=== PATIENT | male | born 1955 | race African-American/Black ===

== ENCOUNTER 2021-06-03 10:07 | Inpatient (IN) ==
[2021-06-03 11:46] LABS: Basophils % 0.2 % (0.0-0.8); Eosinophils # 0.2 10*3/uL (0.0-0.87); Eosinophils % 1.4 % (0.00-10.9); Hematocrit 44.4 VOL% (42.0-52.0); Hemoglobin 14.4 GM/DL (14.0-18.0); Immature Granulocytes % 0.5 %; Immature Granulocytes Absolute 0.05 #; Lymphocytes # 1.5 10*3/uL (1.4-4.0); Lymphocytes % 13.5 % (21.2-54.2); Mean Corpuscular HGB Conc 32.4 GM/DL (32-36); Mean Corpuscular Volume 94.1 FL (87-102); Mean Platelet Volume 9.5 FL (9.6-12.0); Monocytes % 11.9 % (1.7-12.7); Neutrophils % 72.5 % (38.7-73.9); Platelet Count 265 T/CUMM (130-400); Red Blood Count 4.72 MC/CUMM (3.8-5.5); Red Cell Distribution Width 14.4 % (9.3-17.3); White Blood Count 10.8 T/CUMM (4-12)
[2021-06-03 11:57] LABS: INR 3.7; PT Patient Result 38.2 SECS (10.5-12.0)
[2021-06-03 12:53] LABS: Albumin 3.2 G/DL (3.4-5.0); Bilirubin,Total 0.5 MG/DL (0.20-1.00); Calcium 9.3 MG/DL (8.5-10.1); Osmolality,Calculated 291.5 MOS/KG (273-304); Potassium 4.9 MMOL/L (3.5-5.1); Total Protein 7.2 G/DL (6.4-8.2)
[2021-06-03] MEDS ORDERED: ONDANSETRON 4 MG/2 ML VIAL IV PRN (13:04)
[2021-06-03] MEDS ORDERED: BISACODYL 5 MG TABLET PO PRN (13:04)
[2021-06-03] MEDS ORDERED: DEXTROSE 50% 25 GM/50 ML VIAL IV PRN (13:11)
[2021-06-03] MEDS ORDERED: GLUCAGON 1 MG VIAL IM PRN (13:11)
[2021-06-03] MEDS ORDERED: SODIUM CHLORIDE 0.9% 1,000 ML IV PRN (13:27)
[2021-06-03] MEDS ORDERED: PHYTONADIONE 5 MG/5 ML ORAL.SYR PO ONE (13:27)
[2021-06-03] MEDS: PIPERACILLIN/TAZOBACTAM 3,375 MG in SODIUM CHLORIDE 0.9% 100 ML IV SCH ×2 (14:36→21:23)
[2021-06-03] MEDS: LACTATED RINGERS 1,000 ML IV SCH ×2 (14:37→22:13)
[2021-06-03] MEDS ORDERED: DOCUSATE SODIUM 100 MG CAPSULE PO PRN (15:18)
[2021-06-03] MEDS: ACETAMINOPHEN 325 MG TABLET PO PRN (15:36)
[2021-06-03] MEDS ORDERED: INSULIN LISPRO 100 UNIT/ML SUBCUT SCH (17:00)
[2021-06-03] MEDS: INSULIN LISPRO 100 UNIT/ML SUBCUT SCH ×2 (18:20→20:02)
[2021-06-03] MEDS ORDERED: SACUBITRIL/VALSARTAN 49-51 MG TABLET PO SCH (21:00)
[2021-06-03] MEDS: GABAPENTIN 300 MG CAPSULE PO SCH (21:23)
[2021-06-03] MEDS: ROSUVASTATIN 20 MG TABLET PO SCH (21:23)
[2021-06-03] MEDS: FLUTICASONE/SALMETEROL 250-50 DISKUS 14 DOSE INH SCH (21:23)
[2021-06-03] MEDS: MORPHINE 2 MG/1 ML SYRINGE IV PRN (21:24)
[2021-06-03] MEDS: FUROSEMIDE 40 MG TABLET PO SCH (21:24)
[2021-06-03] MEDS: SACUBITRIL/VALSARTAN 49-51 MG TABLET PO SCH (21:24)
[2021-06-03] MEDS: LATANOPROST 0.005% OPH SOLN 2.5 ML BOTTLE BOTH EYES SCH (21:24)
[2021-06-04] MEDS: ACETAMINOPHEN 325 MG TABLET PO PRN (04:53)
[2021-06-04] MEDS: PIPERACILLIN/TAZOBACTAM 3,375 MG in SODIUM CHLORIDE 0.9% 100 ML IV SCH ×3 (05:25→21:07)
[2021-06-04] MEDS: LACTATED RINGERS 1,000 ML IV SCH ×3 (06:34→23:09)
[2021-06-04 07:03] LABS: Basophils % 0.3 % (0.0-0.8); Eosinophils # 0.1 10*3/uL (0.0-0.87); Eosinophils % 1.3 % (0.00-10.9); Hematocrit 40.9 VOL% (42.0-52.0); Hemoglobin 13.1 GM/DL (14.0-18.0); Immature Granulocytes % 0.5 %; Immature Granulocytes Absolute 0.05 #; Lymphocytes # 1.9 10*3/uL (1.4-4.0); Lymphocytes % 17.9 % (21.2-54.2); Mean Platelet Volume 9.4 FL (9.6-12.0); Platelet Count 256 T/CUMM (130-400); Red Blood Count 4.35 MC/CUMM (3.8-5.5); Red Cell Distribution Width 14.4 % (9.3-17.3); White Blood Count 10.7 T/CUMM (4-12)
[2021-06-04 07:09] LABS: INR 1.2; PT Patient Result 13.5 SECS (10.5-12.0)
[2021-06-04 07:39] LABS: Calcium 9.6 MG/DL (8.5-10.1); Potassium 4.2 MMOL/L (3.5-5.1)
[2021-06-04] MEDS: INSULIN LISPRO 100 UNIT/ML SUBCUT SCH ×4 (08:14→21:08)
[2021-06-04] MEDS ORDERED: TIMOLOL 0.25% OPH SOLN 5 ML BOTTLE BOTH EYES SCH (09:00)
[2021-06-04] MEDS: GABAPENTIN 300 MG CAPSULE PO SCH ×2 (09:40→21:07)
[2021-06-04] MEDS: FUROSEMIDE 40 MG TABLET PO SCH ×2 (09:40→21:07)
[2021-06-04] MEDS: SACUBITRIL/VALSARTAN 49-51 MG TABLET PO SCH ×2 (09:40→21:06)
[2021-06-04] MEDS: METOPROLOL SUCCINATE XL 100 MG TABLET PO SCH (09:41)
[2021-06-04] MEDS: PANTOPRAZOLE 40 MG TABLET PO SCH (09:41)
[2021-06-04] MEDS: TIMOLOL 0.5% OPH SOLN 5 ML BOTTLE BOTH EYES SCH (09:49)
[2021-06-04] MEDS: FLUTICASONE/SALMETEROL 250-50 DISKUS 14 DOSE INH SCH ×2 (09:49→21:07)
[2021-06-04] MEDS ORDERED: LIDOCAINE 1%/EPI INJ 20 ML VIAL ONE (10:52)
[2021-06-04] MEDS ORDERED: BUPIVACAINE MPF 0.25% 30 ML VIAL ONE (10:52)
[2021-06-04] MEDS ORDERED: KETAMINE 500 MG/10 ML VIAL ONE (11:12)
[2021-06-04] MEDS ORDERED: LIDOCAINE 2% 5 ML VIAL ONE (11:12)
[2021-06-04] MEDS ORDERED: propofoL 200 MG/20 ML VIAL IV ONE ×2 (11:12→11:51)
[2021-06-04] MEDS ORDERED: fentaNYL 100 MCG/2 ML VIAL ONE (11:12)
[2021-06-04] MEDS ORDERED: SEVOFLURANE 1 UNIT/15 MINUTE INH ONE (11:12)
[2021-06-04] MEDS: HYDROmorphone 2 MG/1 ML VIAL IV PRN ×2 (12:18→12:23)
[2021-06-04] MEDS ORDERED: HYDROmorphone 2 MG/1 ML VIAL ONE (12:18)
[2021-06-04] MEDS ORDERED: ONDANSETRON 4 MG/2 ML VIAL IV PRN (12:19)
[2021-06-04] MEDS ORDERED: WARFARIN 3 MG TABLET PO SCH (21:00)
[2021-06-04] MEDS: ROSUVASTATIN 20 MG TABLET PO SCH (21:06)
[2021-06-04] MEDS: LATANOPROST 0.005% OPH SOLN 2.5 ML BOTTLE BOTH EYES SCH (21:08)
[2021-06-05] MEDS: PIPERACILLIN/TAZOBACTAM 3,375 MG in SODIUM CHLORIDE 0.9% 100 ML IV SCH ×3 (05:07→23:48)
[2021-06-05] MEDS: LACTATED RINGERS 1,000 ML IV SCH ×3 (05:09→22:09)
[2021-06-05 07:24] LABS: Basophils % 0.4 % (0.0-0.8); Eosinophils # 0.4 10*3/uL (0.0-0.87); Eosinophils % 4.5 % (0.00-10.9); Hematocrit 42.7 VOL% (42.0-52.0); Hemoglobin 13.3 GM/DL (14.0-18.0); Immature Granulocytes % 0.6 %; Immature Granulocytes Absolute 0.05 #; Lymphocytes # 2.1 10*3/uL (1.4-4.0); Lymphocytes % 25.6 % (21.2-54.2); Mean Corpuscular HGB Conc 31.1 GM/DL (32-36); Mean Corpuscular Volume 96.8 FL (87-102); Mean Platelet Volume 9.4 FL (9.6-12.0); Monocytes % 12.8 % (1.7-12.7); Neutrophils % 56.1 % (38.7-73.9); Platelet Count 247 T/CUMM (130-400); Red Blood Count 4.41 MC/CUMM (3.8-5.5); Red Cell Distribution Width 14.6 % (9.3-17.3); White Blood Count 8.2 T/CUMM (4-12)
[2021-06-05 07:30] LABS: INR 1.1
[2021-06-05 07:58] LABS: Osmolality,Calculated 277.4 MOS/KG (273-304); Potassium 4.5 MMOL/L (3.5-5.1)
[2021-06-05] MEDS: SACUBITRIL/VALSARTAN 49-51 MG TABLET PO SCH ×2 (08:56→21:25)
[2021-06-05] MEDS: INSULIN LISPRO 100 UNIT/ML SUBCUT SCH ×4 (08:56→21:24)
[2021-06-05] MEDS: GABAPENTIN 300 MG CAPSULE PO SCH ×2 (08:56→21:25)
[2021-06-05] MEDS: FUROSEMIDE 40 MG TABLET PO SCH ×2 (08:56→22:10)
[2021-06-05] MEDS: METOPROLOL SUCCINATE XL 100 MG TABLET PO SCH (08:57)
[2021-06-05] MEDS: PANTOPRAZOLE 40 MG TABLET PO SCH (08:57)
[2021-06-05] MEDS: FLUTICASONE/SALMETEROL 250-50 DISKUS 14 DOSE INH SCH ×2 (08:58→21:26)
[2021-06-05] MEDS: TIMOLOL 0.5% OPH SOLN 5 ML BOTTLE BOTH EYES SCH (08:58)
[2021-06-05 11:24] LABS: Albumin 2.8 G/DL (3.4-5.0); Bilirubin,Direct 0.11 MG/DL (0.0-0.20); Bilirubin,Indirect 0.5 MG/DL (0.0-1.0); Bilirubin,Total 0.6 MG/DL (0.20-1.00); Total Protein 6.6 G/DL (6.4-8.2)
[2021-06-05] MEDS: ENOXAPARIN 150 MG/ML SYRINGE SUBCUT SCH ×2 (13:43→21:24)
[2021-06-05] MEDS: MORPHINE 2 MG/1 ML SYRINGE IV PRN (16:37)
[2021-06-05] MEDS: ROSUVASTATIN 20 MG TABLET PO SCH (21:25)
[2021-06-05] MEDS: LATANOPROST 0.005% OPH SOLN 2.5 ML BOTTLE BOTH EYES SCH (21:30)
[2021-06-06 06:03] LABS: Basophils # 0.1 10*3/uL (0.0-0.2); Basophils % 0.8 % (0.0-0.8); Eosinophils # 0.4 10*3/uL (0.0-0.87); Eosinophils % 5.6 % (0.00-10.9); Hematocrit 37.1 VOL% (42.0-52.0); Hemoglobin 12.1 GM/DL (14.0-18.0); Immature Granulocytes % 0.8 %; Immature Granulocytes Absolute 0.05 #; Lymphocytes # 2.4 10*3/uL (1.4-4.0); Mean Corpuscular HGB Conc 32.6 GM/DL (32-36); Mean Corpuscular Volume 94.2 FL (87-102); Monocytes % 11.6 % (1.7-12.7); Neutrophils % 44.2 % (38.7-73.9); Platelet Count 264 T/CUMM (130-400); Red Blood Count 3.94 MC/CUMM (3.8-5.5); Red Cell Distribution Width 14.1 % (9.3-17.3); White Blood Count 6.4 T/CUMM (4-12)
[2021-06-06 06:19] LABS: Calcium 8.7 MG/DL (8.5-10.1); Osmolality,Calculated 285.8 MOS/KG (273-304)
[2021-06-06 06:23] LABS: INR 1.1; PT Patient Result 12.4 SECS (10.5-12.0)
[2021-06-06] MEDS: PANTOPRAZOLE 40 MG TABLET PO SCH (09:45)
[2021-06-06] MEDS: METOPROLOL SUCCINATE XL 100 MG TABLET PO SCH (09:45)
[2021-06-06] MEDS: FUROSEMIDE 40 MG TABLET PO SCH ×2 (09:45→20:50)
[2021-06-06] MEDS: SACUBITRIL/VALSARTAN 49-51 MG TABLET PO SCH ×2 (09:45→20:49)
[2021-06-06] MEDS: ENOXAPARIN 150 MG/ML SYRINGE SUBCUT SCH ×2 (09:45→20:54)
[2021-06-06] MEDS: GABAPENTIN 300 MG CAPSULE PO SCH ×2 (09:45→20:50)
[2021-06-06] MEDS: PIPERACILLIN/TAZOBACTAM 3,375 MG in SODIUM CHLORIDE 0.9% 100 ML IV SCH ×2 (09:46→17:11)
[2021-06-06] MEDS: TIMOLOL 0.5% OPH SOLN 5 ML BOTTLE BOTH EYES SCH (09:48)
[2021-06-06] MEDS: FLUTICASONE/SALMETEROL 250-50 DISKUS 14 DOSE INH SCH ×2 (09:48→20:50)
[2021-06-06] MEDS: INSULIN LISPRO 100 UNIT/ML SUBCUT SCH ×4 (09:50→20:50)
[2021-06-06] MEDS: MORPHINE 2 MG/1 ML SYRINGE IV PRN (10:47)
[2021-06-06] MEDS: ROSUVASTATIN 20 MG TABLET PO SCH (20:50)
[2021-06-06] MEDS: LATANOPROST 0.005% OPH SOLN 2.5 ML BOTTLE BOTH EYES SCH (20:51)
[2021-06-06] MEDS: LACTATED RINGERS 1,000 ML IV SCH (22:13)
[2021-06-07] MEDS: PIPERACILLIN/TAZOBACTAM 3,375 MG in SODIUM CHLORIDE 0.9% 100 ML IV SCH (00:31)
[2021-06-07 05:34] LABS: Basophils % 0.4 % (0.0-0.8); Eosinophils # 0.4 10*3/uL (0.0-0.87); Eosinophils % 6.1 % (0.00-10.9); Hematocrit 37.1 VOL% (42.0-52.0); Hemoglobin 11.8 GM/DL (14.0-18.0); Immature Granulocytes % 0.6 %; Immature Granulocytes Absolute 0.04 #; Lymphocytes # 2.4 10*3/uL (1.4-4.0); Lymphocytes % 35.6 % (21.2-54.2); Mean Corpuscular HGB Conc 31.8 GM/DL (32-36); Mean Corpuscular Volume 95.9 FL (87-102); Mean Platelet Volume 9.2 FL (9.6-12.0); Monocytes % 12.7 % (1.7-12.7); Neutrophils % 44.6 % (38.7-73.9); Platelet Count 276 T/CUMM (130-400); Red Blood Count 3.87 MC/CUMM (3.8-5.5); Red Cell Distribution Width 14.3 % (9.3-17.3); White Blood Count 6.8 T/CUMM (4-12)
[2021-06-07 05:44] LABS: INR 1.1; PT Patient Result 12.5 SECS (10.5-12.0)
[2021-06-07 06:05] LABS: Calcium 8.9 MG/DL (8.5-10.1); Osmolality,Calculated 286.8 MOS/KG (273-304); Potassium 4.4 MMOL/L (3.5-5.1)
[2021-06-07] MEDS: SACUBITRIL/VALSARTAN 49-51 MG TABLET PO SCH ×2 (09:07→21:21)
[2021-06-07] MEDS: GABAPENTIN 300 MG CAPSULE PO SCH ×2 (09:07→21:21)
[2021-06-07] MEDS: FUROSEMIDE 40 MG TABLET PO SCH (09:08)
[2021-06-07] MEDS: METOPROLOL SUCCINATE XL 100 MG TABLET PO SCH (09:08)
[2021-06-07] MEDS: ENOXAPARIN 150 MG/ML SYRINGE SUBCUT SCH ×2 (09:08→21:22)
[2021-06-07] MEDS: PANTOPRAZOLE 40 MG TABLET PO SCH (09:08)
[2021-06-07] MEDS: INSULIN LISPRO 100 UNIT/ML SUBCUT SCH ×4 (09:10→21:22)
[2021-06-07] MEDS: TIMOLOL 0.5% OPH SOLN 5 ML BOTTLE BOTH EYES SCH (09:12)
[2021-06-07] MEDS: FLUTICASONE/SALMETEROL 250-50 DISKUS 14 DOSE INH SCH ×2 (09:12→21:25)
[2021-06-07] MEDS: CLINDAMYCIN 300 MG CAPSULE PO SCH ×2 (13:17→21:21)
[2021-06-07] MEDS: MORPHINE 2 MG/1 ML SYRINGE IV PRN (13:56)
[2021-06-07] MEDS ORDERED: WARFARIN 7.5 MG TABLET PO SCH (21:00)
[2021-06-07] MEDS: ROSUVASTATIN 20 MG TABLET PO SCH (21:21)
[2021-06-07] MEDS: LATANOPROST 0.005% OPH SOLN 2.5 ML BOTTLE BOTH EYES SCH (21:21)
[2021-06-08] MEDS: CLINDAMYCIN 300 MG CAPSULE PO SCH ×3 (05:30→21:37)
[2021-06-08 05:59] LABS: Basophils % 0.5 % (0.0-0.8); Eosinophils # 0.3 10*3/uL (0.0-0.87); Hematocrit 44.2 VOL% (42.0-52.0); Hemoglobin 13.4 GM/DL (14.0-18.0); Immature Granulocytes % 0.7 %; Immature Granulocytes Absolute 0.04 #; Lymphocytes # 2.4 10*3/uL (1.4-4.0); Lymphocytes % 40.7 % (21.2-54.2); Mean Corpuscular HGB Conc 30.3 GM/DL (32-36); Mean Corpuscular Volume 98.7 FL (87-102); Mean Platelet Volume 9.2 FL (9.6-12.0); Monocytes % 11.4 % (1.7-12.7); Neutrophils % 41.7 % (38.7-73.9); Platelet Count 316 T/CUMM (130-400); Red Blood Count 4.48 MC/CUMM (3.8-5.5); Red Cell Distribution Width 14.4 % (9.3-17.3)
[2021-06-08 06:08] LABS: INR 1.1; PT Patient Result 12.1 SECS (10.5-12.0)
[2021-06-08 06:27] LABS: Calcium 9.5 MG/DL (8.5-10.1); Osmolality,Calculated 281.1 MOS/KG (273-304); Potassium 4.1 MMOL/L (3.5-5.1)
[2021-06-08] MEDS: INSULIN LISPRO 100 UNIT/ML SUBCUT SCH ×5 (09:37→21:29)
[2021-06-08] MEDS: ENOXAPARIN 150 MG/ML SYRINGE SUBCUT SCH ×2 (09:37→21:30)
[2021-06-08] MEDS: PANTOPRAZOLE 40 MG TABLET PO SCH (09:38)
[2021-06-08] MEDS: TIMOLOL 0.5% OPH SOLN 5 ML BOTTLE BOTH EYES SCH (09:38)
[2021-06-08] MEDS: GABAPENTIN 300 MG CAPSULE PO SCH ×2 (09:38→21:30)
[2021-06-08] MEDS: METOPROLOL SUCCINATE XL 100 MG TABLET PO SCH (09:38)
[2021-06-08] MEDS: SACUBITRIL/VALSARTAN 49-51 MG TABLET PO SCH ×2 (09:38→21:30)
[2021-06-08] MEDS: FLUTICASONE/SALMETEROL 250-50 DISKUS 14 DOSE INH SCH ×2 (09:38→21:31)
[2021-06-08] MEDS: FUROSEMIDE 40 MG TABLET PO SCH (09:38)
[2021-06-08] MEDS: WARFARIN 5 MG TABLET PO SCH (17:58)
[2021-06-08] MEDS: ROSUVASTATIN 20 MG TABLET PO SCH (21:32)
[2021-06-08] MEDS: LATANOPROST 0.005% OPH SOLN 2.5 ML BOTTLE BOTH EYES SCH (21:33)
[2021-06-09] MEDS: CLINDAMYCIN 300 MG CAPSULE PO SCH ×3 (05:36→21:09)
[2021-06-09 06:59] LABS: Basophils % 0.4 % (0.0-0.8); Eosinophils # 0.3 10*3/uL (0.0-0.87); Eosinophils % 4.7 % (0.00-10.9); Hematocrit 41.5 VOL% (42.0-52.0); Hemoglobin 12.7 GM/DL (14.0-18.0); Immature Granulocytes % 0.7 %; Immature Granulocytes Absolute 0.04 #; Lymphocytes # 2.1 10*3/uL (1.4-4.0); Lymphocytes % 38.9 % (21.2-54.2); Mean Corpuscular HGB Conc 30.6 GM/DL (32-36); Mean Corpuscular Volume 97.6 FL (87-102); Mean Platelet Volume 9.1 FL (9.6-12.0); Monocytes % 10.7 % (1.7-12.7); Neutrophils % 44.6 % (38.7-73.9); Platelet Count 307 T/CUMM (130-400); Red Blood Count 4.25 MC/CUMM (3.8-5.5); Red Cell Distribution Width 14.3 % (9.3-17.3); White Blood Count 5.5 T/CUMM (4-12)
[2021-06-09 07:02] LABS: INR 1.2
[2021-06-09 07:31] LABS: Calcium 9.4 MG/DL (8.5-10.1); Potassium 4.1 MMOL/L (3.5-5.1)
[2021-06-09] MEDS: INSULIN LISPRO 100 UNIT/ML SUBCUT SCH ×4 (07:48→21:11)
[2021-06-09] MEDS: SACUBITRIL/VALSARTAN 49-51 MG TABLET PO SCH ×2 (08:54→21:11)
[2021-06-09] MEDS: FUROSEMIDE 40 MG TABLET PO SCH (08:54)
[2021-06-09] MEDS: GABAPENTIN 300 MG CAPSULE PO SCH ×2 (08:54→21:09)
[2021-06-09] MEDS: PANTOPRAZOLE 40 MG TABLET PO SCH (08:54)
[2021-06-09] MEDS: METOPROLOL SUCCINATE XL 100 MG TABLET PO SCH (08:54)
[2021-06-09] MEDS: TIMOLOL 0.5% OPH SOLN 5 ML BOTTLE BOTH EYES SCH (08:54)
[2021-06-09] MEDS: FLUTICASONE/SALMETEROL 250-50 DISKUS 14 DOSE INH SCH ×2 (08:54→21:11)
[2021-06-09] MEDS: ENOXAPARIN 150 MG/ML SYRINGE SUBCUT SCH ×2 (08:55→21:10)
[2021-06-09] MEDS: WARFARIN 5 MG TABLET PO SCH (17:32)
[2021-06-09] MEDS: ROSUVASTATIN 20 MG TABLET PO SCH (21:09)
[2021-06-09] MEDS: LATANOPROST 0.005% OPH SOLN 2.5 ML BOTTLE BOTH EYES SCH (21:11)
[2021-06-10] MEDS: CLINDAMYCIN 300 MG CAPSULE PO SCH ×3 (05:13→21:10)
[2021-06-10 05:51] LABS: Basophils % 0.3 % (0.0-0.8); Eosinophils # 0.3 10*3/uL (0.0-0.87); Eosinophils % 4.4 % (0.00-10.9); Hematocrit 39.8 VOL% (42.0-52.0); Hemoglobin 12.3 GM/DL (14.0-18.0); Immature Granulocytes % 0.8 %; Immature Granulocytes Absolute 0.05 #; Lymphocytes # 2.2 10*3/uL (1.4-4.0); Lymphocytes % 35.2 % (21.2-54.2); Mean Corpuscular HGB Conc 30.9 GM/DL (32-36); Mean Corpuscular Volume 97.1 FL (87-102); Mean Platelet Volume 9.4 FL (9.6-12.0); Monocytes % 12.8 % (1.7-12.7); Neutrophils % 46.5 % (38.7-73.9); Platelet Count 296 T/CUMM (130-400); Red Cell Distribution Width 14.2 % (9.3-17.3); White Blood Count 6.3 T/CUMM (4-12)
[2021-06-10 06:12] LABS: Calcium 9.3 MG/DL (8.5-10.1); Osmolality,Calculated 281.4 MOS/KG (273-304); Potassium 4.4 MMOL/L (3.5-5.1)
[2021-06-10 06:22] LABS: INR 1.7
[2021-06-10] MEDS: INSULIN LISPRO 100 UNIT/ML SUBCUT SCH ×4 (07:40→22:55)
[2021-06-10] MEDS: METOPROLOL SUCCINATE XL 100 MG TABLET PO SCH (09:44)
[2021-06-10] MEDS: FUROSEMIDE 40 MG TABLET PO SCH (09:44)
[2021-06-10] MEDS: GABAPENTIN 300 MG CAPSULE PO SCH ×2 (09:44→21:10)
[2021-06-10] MEDS: SACUBITRIL/VALSARTAN 49-51 MG TABLET PO SCH ×2 (09:44→21:10)
[2021-06-10] MEDS: ENOXAPARIN 150 MG/ML SYRINGE SUBCUT SCH ×2 (09:45→21:10)
[2021-06-10] MEDS: FLUTICASONE/SALMETEROL 250-50 DISKUS 14 DOSE INH SCH ×2 (09:45→21:11)
[2021-06-10] MEDS: TIMOLOL 0.5% OPH SOLN 5 ML BOTTLE BOTH EYES SCH (09:45)
[2021-06-10] MEDS: PANTOPRAZOLE 40 MG TABLET PO SCH (09:45)
[2021-06-10] MEDS: WARFARIN 5 MG TABLET PO SCH (18:08)
[2021-06-10] MEDS: glipiZIDE 10 MG TABLET PO SCH (18:08)
[2021-06-10] MEDS: ROSUVASTATIN 20 MG TABLET PO SCH (21:10)
[2021-06-10] MEDS: LATANOPROST 0.005% OPH SOLN 2.5 ML BOTTLE BOTH EYES SCH (21:11)
[2021-06-11 05:41] LABS: Basophils % 0.7 % (0.0-0.8); Eosinophils # 0.3 10*3/uL (0.0-0.87); Eosinophils % 4.4 % (0.00-10.9); Hematocrit 39.6 VOL% (42.0-52.0); Hemoglobin 12.3 GM/DL (14.0-18.0); Immature Granulocytes % 0.8 %; Immature Granulocytes Absolute 0.05 #; Lymphocytes # 2.1 10*3/uL (1.4-4.0); Lymphocytes % 33.8 % (21.2-54.2); Mean Corpuscular HGB Conc 31.1 GM/DL (32-36); Mean Corpuscular Volume 96.6 FL (87-102); Mean Platelet Volume 8.9 FL (9.6-12.0); Neutrophils % 47.3 % (38.7-73.9); Platelet Count 312 T/CUMM (130-400); Red Cell Distribution Width 14.4 % (9.3-17.3); White Blood Count 6.1 T/CUMM (4-12)
[2021-06-11 05:50] LABS: INR 1.4; PT Patient Result 15.5 SECS (10.5-12.0)
[2021-06-11] MEDS: CLINDAMYCIN 300 MG CAPSULE PO SCH ×3 (05:51→22:21)
[2021-06-11] MEDS: INSULIN LISPRO 100 UNIT/ML SUBCUT SCH ×4 (09:01→22:21)
[2021-06-11] MEDS: GABAPENTIN 300 MG CAPSULE PO SCH ×2 (09:08→22:21)
[2021-06-11] MEDS: glipiZIDE 10 MG TABLET PO SCH ×2 (09:08→17:03)
[2021-06-11] MEDS: FUROSEMIDE 40 MG TABLET PO SCH (09:08)
[2021-06-11] MEDS: METOPROLOL SUCCINATE XL 100 MG TABLET PO SCH (09:09)
[2021-06-11] MEDS: ENOXAPARIN 150 MG/ML SYRINGE SUBCUT SCH ×2 (09:09→22:22)
[2021-06-11] MEDS: PANTOPRAZOLE 40 MG TABLET PO SCH (09:09)
[2021-06-11] MEDS: SACUBITRIL/VALSARTAN 49-51 MG TABLET PO SCH ×2 (09:09→22:21)
[2021-06-11] MEDS: FLUTICASONE/SALMETEROL 250-50 DISKUS 14 DOSE INH SCH ×2 (09:10→22:31)
[2021-06-11] MEDS: TIMOLOL 0.5% OPH SOLN 5 ML BOTTLE BOTH EYES SCH (09:10)
[2021-06-11] MEDS: SIMETHICONE CHEW 125 MG TABLET PO PRN (15:15)
[2021-06-11] MEDS: WARFARIN 5 MG TABLET PO SCH (17:03)
[2021-06-11] MEDS: ROSUVASTATIN 20 MG TABLET PO SCH (22:21)
[2021-06-11] MEDS: LATANOPROST 0.005% OPH SOLN 2.5 ML BOTTLE BOTH EYES SCH (22:25)
[2021-06-12] MEDS: CLINDAMYCIN 300 MG CAPSULE PO SCH ×3 (05:54→21:53)
[2021-06-12] MEDS: SIMETHICONE CHEW 125 MG TABLET PO PRN (05:58)
[2021-06-12 06:11] LABS: Basophils % 0.3 % (0.0-0.8); Eosinophils # 0.3 10*3/uL (0.0-0.87); Eosinophils % 4.2 % (0.00-10.9); Hematocrit 40.5 VOL% (42.0-52.0); Hemoglobin 13.1 GM/DL (14.0-18.0); Immature Granulocytes % 0.7 %; Immature Granulocytes Absolute 0.04 #; Lymphocytes # 2.1 10*3/uL (1.4-4.0); Lymphocytes % 34.5 % (21.2-54.2); Mean Corpuscular HGB Conc 32.3 GM/DL (32-36); Mean Corpuscular Volume 96.4 FL (87-102); Monocytes % 11.9 % (1.7-12.7); Neutrophils % 48.4 % (38.7-73.9); Platelet Count 321 T/CUMM (130-400); Red Cell Distribution Width 14.4 % (9.3-17.3); White Blood Count 6.2 T/CUMM (4-12)
[2021-06-12 06:35] LABS: INR 1.7; PT Patient Result 18.2 SECS (10.5-12.0)
[2021-06-12] MEDS: glipiZIDE 10 MG TABLET PO SCH ×2 (09:35→15:51)
[2021-06-12] MEDS: METOPROLOL SUCCINATE XL 100 MG TABLET PO SCH (09:35)
[2021-06-12] MEDS: SACUBITRIL/VALSARTAN 49-51 MG TABLET PO SCH ×2 (09:35→21:53)
[2021-06-12] MEDS: GABAPENTIN 300 MG CAPSULE PO SCH ×2 (09:35→21:53)
[2021-06-12] MEDS: FUROSEMIDE 40 MG TABLET PO SCH (09:36)
[2021-06-12] MEDS: PANTOPRAZOLE 40 MG TABLET PO SCH (09:36)
[2021-06-12] MEDS: TIMOLOL 0.5% OPH SOLN 5 ML BOTTLE BOTH EYES SCH (09:36)
[2021-06-12] MEDS: FLUTICASONE/SALMETEROL 250-50 DISKUS 14 DOSE INH SCH ×2 (09:38→21:54)
[2021-06-12] MEDS: ENOXAPARIN 150 MG/ML SYRINGE SUBCUT SCH ×2 (09:41→21:54)
[2021-06-12] MEDS: INSULIN LISPRO 100 UNIT/ML SUBCUT SCH ×4 (10:12→21:53)
[2021-06-12] MEDS: WARFARIN 5 MG TABLET PO SCH (18:11)
[2021-06-12] MEDS: ROSUVASTATIN 20 MG TABLET PO SCH (21:53)
[2021-06-12] MEDS: LATANOPROST 0.005% OPH SOLN 2.5 ML BOTTLE BOTH EYES SCH (21:53)
[2021-06-13] MEDS: CLINDAMYCIN 300 MG CAPSULE PO SCH (06:06)
[2021-06-13 06:12] LABS: PT Patient Result 21.1 SECS (10.5-12.0)
[2021-06-13 08:48] VITALS: BP 131/63
[2021-06-13] MEDS: PANTOPRAZOLE 40 MG TABLET PO SCH (09:13)
[2021-06-13] MEDS: FUROSEMIDE 40 MG TABLET PO SCH (09:13)
[2021-06-13] MEDS: GABAPENTIN 300 MG CAPSULE PO SCH (09:13)
[2021-06-13] MEDS: SIMETHICONE CHEW 125 MG TABLET PO PRN (09:13)
[2021-06-13] MEDS: SACUBITRIL/VALSARTAN 49-51 MG TABLET PO SCH (09:13)
[2021-06-13] MEDS: glipiZIDE 10 MG TABLET PO SCH (09:13)
[2021-06-13] MEDS: TIMOLOL 0.5% OPH SOLN 5 ML BOTTLE BOTH EYES SCH (09:14)
[2021-06-13] MEDS: METOPROLOL SUCCINATE XL 100 MG TABLET PO SCH (09:14)
[2021-06-13] MEDS: FLUTICASONE/SALMETEROL 250-50 DISKUS 14 DOSE INH SCH (09:14)
[2021-06-13] MEDS: ENOXAPARIN 150 MG/ML SYRINGE SUBCUT SCH (09:15)
[2021-06-13] MEDS: INSULIN LISPRO 100 UNIT/ML SUBCUT SCH (09:16)
== END 2021-06-13 11:10 | disposition home health service (06) | DRG 264 ==
LOC: N.ED 10:07 → N.EDINP 13:04 → N.3E 17:11
PROVIDERS: ADMIT Surgery; ATTEND Internal Medicine